=== PATIENT | female | born 1990 | race Hispanic/Latino ===

== ENCOUNTER 2018-09-28 20:40 | Inpatient (IN) | payer MEDICAID, OTHER ==
[2018-09-28] MEDS ORDERED: BRETHINE SUB-Q PRN (23:28)
[2018-09-28] MEDS ORDERED: XYLOCAINE 2% INFILTRATI ONE (23:28)
[2018-09-28] MEDS ORDERED: MINERAL OIL PO PRN (23:28)
[2018-09-28] MEDS ORDERED: BRETHINE IVP PRN (23:28)
[2018-09-28] MEDS ORDERED: PITOCin/NS 20 UNIT/1000ML DRIP 20 UNITS/1,000 ML BAG IV SCH (23:45)
[2018-09-28] MEDS ORDERED: PITOCin/NS 30 UNIT/500ML 30 UNITS/500 ML BAG IV SCH (23:45)
[2018-09-29] MEDS: LACTATED RINGERS 1,000 ML IV SCH ×3 (00:12→16:20)
[2018-09-29 00:13] LABS: Hematocrit 38.7 % (30.3-42.9); Hemoglobin 13.2 gm/dl (10.1-14.3); Mean Corpuscular HGB Conc 34 % (30-34); Mean Corpuscular Volume 94 fl (79-97); Red Blood Count 4.14 M/mm3 (3.65-5.03); Red Cell Distribution Width 13.2 % (13.2-15.2)
[2018-09-29] MEDS ORDERED: AMBIEN PO PRN (00:43)
[2018-09-29 01:38] LABS: Platelet Count 84 K/mm3 (140-440)
[2018-09-29] MEDS ORDERED: AMPICILLIN/NS 2 GM/100 ML 2 GM/100 ML BAG IV ONE (11:52)
[2018-09-29] MEDS ORDERED: AMPICILLIN 1 GM in NACL 0.9% 50 ML IV SCH (16:00)
[2018-09-29] MEDS: STADOL IV PRN ×2 (17:06→23:01)
[2018-09-29] MEDS: AMPICILLIN/NS 1 GM/50 ML 1 GM/50 ML BAG IV SCH ×2 (17:40→22:00)
--- NOTE | 2018-09-29 21:15 | History and Physical Report ---
History of Present Illness Date of examination: 09/29/18 Date of admission: 09/28/18 21:15 Chief complaint: I'm here for induction History of present illness: Pt is a 28 year old who presents at 39.3 weeks here for induction of labor secondary to Past History Past Medical History: no pertinent history Past Surgical History: no surgical history [employer] History: trichomonas Family/Genetic History: diabetes, hypertension Social history: single - Obstetrical History Expected Date of Delivery: 10/02/18 Actual Gestation: 39 Week(s) 4 Day(s) : 2 Medications and Allergies Allergies Allergy/AdvReac Type Severity Reaction Status Date / Time No Known Allergies Allergy Unverified 09/28/18 23:27 Active Meds: Active Medications Butorphanol Tartrate (Stadol) 2 mg IV Q2H PRN PRN Reason: Pain , Severe (7-10) Last Admin: 09/29/18 17:06 Dose: 2 mg Documented by: Ephedrine Sulfate (Ephedrine Sulfate) 10 mg IV Q2M PRN PRN Reason: Hypotension Oxytocin/Sodium Chloride (Pitocin/Ns 20 Unit/1000ml Drip) 20 units in 1,000 mls @ 125 mls/hr IV DIRECT PACHECO Oxytocin/Sodium Chloride (Pitocin/Ns 30 Unit/500ml) 30 units in 500 mls @ 2 mls/hr IV TITR PACHECO; Protocol Last Titration: 09/29/18 20:06 Dose: 8 milliunits/min, 8 mls/hr Documented by: Lactated Ringer's (Lactated Ringers) 1,000 mls @ 125 mls/hr IV DIRECT PACHECO Last Admin: 09/29/18 16:20 Dose: 125 mls/hr Documented by: Ampicillin Sodium (Ampicillin/Ns 1 Gm/50 Ml) 1 gm in 50 mls @ 100 mls/hr IV Q4HR PACHECO Last Admin: 09/29/18 17:40 Dose: 100 mls/hr Documented by: Mineral Oil (Mineral Oil) 30 ml PO QHS PRN PRN Reason: Constipation Terbutaline Sulfate (Brethine) 0.25 mg SUB-Q ONCE PRN PRN Reason: Hyperstimulation/Hypertonicity Terbutaline Sulfate (Brethine) 0.25 mg IVP ONCE PRN PRN Reason: Hyperstimulation/Hypertonicity Zolpidem Tartrate (Ambien) 5 mg PO QHS PRN PRN Reason: Sleep Last Admin: 09/29/18 01:01 Dose: 5 mg Documented by: Review of Systems All systems: negative Constitutional: weight gain - Vital Signs Vital signs: Vital Signs Pulse BP 93 H 145/90 09/28/18 22:39 09/28/18 22:39 Temp Pulse Resp BP Pulse Ox 97.5 F L 85 20 126/92 09/29/18 08:08 09/29/18 11:44 09/29/18 08:08 09/29/18 11:44 - Physical Exam Breasts: Cardiovascular: Regular rate, Normal S1, Normal S2 Lungs: Positive: Clear to auscultation, Normal air movement Abdomen: Positive: normal appearance, soft, normal bowel sounds. Negative: distention, tenderness Vulva: both: normal Vagina: Positive: normal moisture. Negative: discharge Cervix: Negative: lesion, discharge Uterus: Positive: normal size, normal contour Adnexa: both: normal Anus/Rectum: Positive: normal perianal skin, heme negative. Negative: rectal mass, hemorrhoids Extremities: Positive: normal Deep Tendon Reflex Grade: Normal +2 - Obstetrical Cervical Dilatation: 1 Cervical Effacement Percentage: 50 station: -2 Uterine Contraction Pattern: Irregular Uterine Tone Measurement Phase: Contraction Uterine Contraction Intensity: Moderate Results Result Diagrams: 09/28/18 23:45 Abnormal lab results 09/28/18 Range/Units 23:45 Plt Count 84 L (140-440) K/mm3 All other labs normal. Assessment and Plan IUP at 39.1 weeks with gestational diabetes here for induction of labor at the advisement of [facility] who recommended delivery at 39 weeks. Pt already dilated so will begin with low dose pitocin overnight and increase in am. Anticipate .
[2018-09-29] MEDS ORDERED: SUBLIMAZE IV ONE (21:25)
[2018-09-29 21:46] LABS: Hematocrit 38.2 % (30.3-42.9); Mean Corpuscular HGB Conc 34 % (30-34); Mean Corpuscular Volume 92 fl (79-97); Red Blood Count 4.13 M/mm3 (3.65-5.03); Red Cell Distribution Width 13.1 % (13.2-15.2)
[2018-09-29 22:03] LABS: Platelet Count 85 K/mm3 (140-440)
[2018-09-30] MEDS: STADOL IV PRN (01:15)
[2018-09-30] MEDS: AMPICILLIN/NS 1 GM/50 ML 1 GM/50 ML BAG IV SCH ×2 (01:16→07:43)
[2018-09-30] MEDS: LACTATED RINGERS 1,000 ML IV SCH (01:16)
[2018-09-30] MEDS ORDERED: XYLOCAINE 2% INFILTRATI ONE (04:10)
--- NOTE | 2018-09-30 05:03 | Procedure Note ---
OB Delivery Note - Delivery Date of Delivery: 09/30/18 Surgeon: NANNETTE VANG Estimated blood loss: 300cc - Vaginal Delivery presentation: vertex Delivery position: OA Intrapartum events: none Delivery induction: oxytocin Delivery monitor: external FHT, external uterine Route of delivery: Delivery placenta: spontaneous Delivery cord: 3 umbilical vessels Episiotomy: none Delivery laceration: 1st degree Delivery repair: vicryl Anesthesia: local Delivery comments: Viable male delivered over intact perineum. Mouth and nose suctioned on perineum. Infant placed on maternal abdomen for brief skin to skin bonding. Cord clamped and cut. Placenta delivered spontaneously and intact with 3vc. First degree laceration repaired with 2.0 vicryl. Excellent hemostasis. Pt tolerated procedure well. - Infant A at 1 minute: 8 at 5 minutes: 9 Infant Gender: Male (7 pounds 14 ounces)
[2018-09-30] MEDS ORDERED: MYLICON PO PRN (06:47)
[2018-09-30] MEDS: NORCO 5/325 PO PRN ×3 (07:07→22:12)
[2018-09-30 14:46] LABS: Basophils # (Auto) 0.1 K/mm3 (0.0-0.1); Basophils % (Auto) 0.6 % (0.0-1.8); Eosinophils % (Auto) 0.1 % (0.0-4.3); Hematocrit 31.1 % (30.3-42.9); Hemoglobin 10.8 gm/dl (10.1-14.3); Lymphocytes # (Auto) 1.6 K/mm3 (1.2-5.4); Lymphocytes % (Auto) 14.1 % (13.4-35.0); Mean Corpuscular HGB Conc 35 % (30-34); Mean Corpuscular Volume 92 fl (79-97); Monocytes # (Auto) 0.6 K/mm3 (0.0-0.8); Monocytes % (Auto) 5.7 % (0.0-7.3); Platelet Count 98 K/mm3 (140-440); Red Blood Count 3.37 M/mm3 (3.65-5.03); Red Cell Distribution Width 12.9 % (13.2-15.2)
[2018-09-30 23:02] LABS: Amphetamine Screen,Urine PRESUMPTIVE NEGATIVE; Benzodiazepines Screen,Urine PRESUMPTIVE NEGATIVE; Cannabinoid Screen,Urine PRESUMPTIVE NEGATIVE; Cocaine Screen,Urine PRESUMPTIVE NEGATIVE; Methadone Screen,Urine PRESUMPTIVE NEGATIVE; Opiate Screen,Urine PRESUMPTIVE NEGATIVE
[2018-10-01] MEDS: NORCO 5/325 PO PRN ×2 (04:15→18:27)
[2018-10-01] MEDS ORDERED: BOOSTRIX IM ONE (06:00)
[2018-10-01 11:25] VITALS: BP 129/89
--- NOTE | 2018-10-01 12:15 | Progress Note ---
Assessment and Plan Pt doing well post . Ready to go home today. Subjective - Subjective Date of service: 10/01/18 Interval history: Pt is a 28 year old who presents at 39.3 weeks here for induction of labor secondary to Patient reports: appetite normal, voiding normally, pain well controlled, ambulating normally [place]: doing well Objective - Vital Signs Latest vital signs: Vital Signs Temp Pulse Resp BP BP Pulse Ox 10/01/18 10:31 98.4 F 120 H 16 129/89 99 10/01/18 04:00 98.6 F 81 16 120/78 10/01/18 00:00 98.7 F 89 18 132/71 09/30/18 20:30 98.8 F 98 H 18 146/82 09/30/18 16:36 98.4 F 112 H 16 135/86 97 09/30/18 16:26 20 09/30/18 12:33 97.6 F 122 H 18 123/85 98 Intake and Output 09/30/18 10/01/18 10/01/18 22:59 06:59 14:59 Intake Total 300 Balance 300 Intake: Intake, Free Water 300 - Exam Breasts: Present: deferred Cardiovascular: Present: Regular rate, Normal S1, Normal S2 Lungs: Present: Clear to auscultation, Normal air movement Abdomen: Present: normal appearance, soft, normal bowel sounds Vulva: both: normal Uterus: Present: normal, firm Extremities: Present: normal - Labs Labs: Abnormal lab results 09/30/18 Range/Units 14:30 WBC 11.3 H (4.5-11.0) K/mm3 RBC 3.37 L (3.65-5.03) M/mm3 MCHC 35 H (30-34) % RDW 12.9 L (13.2-15.2) % Plt Count 98 L (140-440) K/mm3 Seg Neutrophils % 79.5 H (40.0-70.0) % Seg Neutrophils # 9.0 H (1.8-7.7) K/mm3
--- NOTE | 2018-10-01 12:17 | Discharge Summary ---
Providers - Providers Date of Admission: 09/28/18 21:15 Date of discharge: 10/01/18 Attending physician: NANNETTE VANG 09/30/18 13:31 Consult to Case Management [CONS] Routine Services Needed at Discharge: Cardiovascular Invasive Specialist Notified:: [phone] Phone number called:: [phone] Additional Physician Instructions: history of positve use of THC in Primary care physician: NANNETTE VANG Hospitalization Reason for admission: active labor Delivery: Laceration: 1st degree Incision: normal Other procedures: none Discharge diagnosis: IUP at term delivered [place] baby: male Hospital course: unremarkable Condition at discharge: Good Disposition: DC-01 TO HOME OR SELFCARE Plan - Discharge Medications Prescriptions: Ibuprofen [Motrin] 600 mg PO Q8H PRN #40 tablet PRN Reason: Pain HYDROcodone/APAP 5-325 [[place] 5/325] 1 each PO Q6HR PRN #20 tablet PRN Reason: Pain - Provider Discharge Summary Activity: routine, no sex for 6 weeks, no heavy lifting 4 weeks, no strenuous exercise Diet: routine Instructions: routine Additional instructions: [] Smoking cessation referral if applicable(refer to patient education folder for contact #) [] Refer to [facility]'s [facility] Booklet Call your doctor immediately for: * Fever > 100.5 * Heavy vaginal bleeding ( >1 pad per hour) * Severe persistent headache * Shortness of breath * Reddened, hot, painful area to leg or breast * Drainage or odor from incision. * Keep incision clean and dry at all times and follow doctor's instructions regarding bathing/showering - Follow up plan Follow up: NANNETTE VANG MD [Primary Care Provider] - 6 Weeks
== END 2018-10-01 18:44 | disposition home or self-care (01) | DRG 775 ==
LOC: TRG 20:40 → LD 21:15 → OB 09-30 05:49
PROVIDERS: ADMIT Obstetrics & Gynecology; ATTEND Obstetrics & Gynecology
PROC: 10E0XZZ Delivery of Products of Conception, External Approach (ICD-10-PCS; principal; 2018-09-30)
PROC: 0HQ9XZZ Repair Perineum Skin, External Approach (ICD-10-PCS; 2018-09-30)
PROC: 3E033VJ Introduction of Other Hormone into Peripheral Vein, Percutaneous Approach (ICD-10-PCS; 2018-09-30)
DX: O24.429 Gestational diabetes mellitus in childbirth, unspecified control (principal); O70.0 First degree perineal laceration during delivery; Z3A.39 39 weeks gestation of pregnancy; Z37.0 Single live birth; Z83.3 Family history of diabetes mellitus; Z82.49 Family history of ischemic heart disease and other diseases of the circulatory system
CPT/HCPCS: 36415; 80307; 82962; 85014; 85018; 85025; 85027; 86592; 86850; 86900; 86901; 90471; 90715; G0378; J0290; J0595; J2590; J3010; J7120